=== PATIENT | male | born 1960 | race Caucasian/White ===

== ENCOUNTER → 2023-11-03 07:02 | Outpatient (REF) | payer OTHER, SELFPAY | LOC: RAD 07:02 | PROVIDERS: ATTENDING PHYSICIAN Nurse Practitioner Family | DX: R51.9 Headache, unspecified (principal) | CPT/HCPCS: 70450 ==

== ENCOUNTER 2025-06-26 07:04 | Emergency (ER) | payer OTHER, SELFPAY ==
[2025-06-26 07:11] VITALS: BP 148/90
[2025-06-26 07:15] VITALS: BMI 25.1
[2025-06-26] MEDS: ASPIRIN 325 MG PO (07:39)
--- NOTE | 2025-06-26 07:41 | ED.GENMED ---
History of Present Illness
General
Chief Complaint: Chest Pain
Source: patient
Exam Limitations: none
Time Seen by Provider: 06/26/25 07:12
Nursing documentation reviewed up to this point in time: agreed with
History of Present Illness
History of Present Illness:
65-year-old male presenting to the emergency department today with concerns of left chest pain described as a tightness with specific movements seems to improve when sitting still. Initially started in upper back. He claims that he was in [place]
last week and he was kite surfing and doing a large amount of work while there. He had some degree of symptoms at that time but seem to worsen after flying home. He denies any specific associated symptoms. Denies specifically any shortness of
breath nausea diaphoresis. Denies any recent leg swelling recent trauma surgery immobilization history of blood clots.
Past History
Past History
ED Past Medical History: Other (Remote history of Lyme's disease)
ED Past Surgical History: None
Social History
Tobacco: Non-smoker
Alcohol: Occasional
Personal:
Living: with family
Employment: Employed
Family History
Family History: Unable to obtain
Review of Systems
Review of Systems
Allergies reviewed?: Yes
All Other Systems: ROS reviewed and negative except as documented in HPI and ROS
Phy Exam
Physical Exam
Physical Exam:
GENERAL: Alert , in no apparent distress
EYE: pupils equal and reactive
NECK: Supple, no significant adenopathy.
ENT: o/p clr, mmm.
CARDIAC: Regular rate and rhythm .
LUNGS: Clear breath sounds bilaterally, no acute respiratory distress, no wheezes/rales/rhonchi
ABDOMEN: Soft, without focal tenderness, no r/g, no cvat
NEUROLOGICAL: Alert and oriented, no focal neuro deficits
SKIN: Warm and dry, skin intact.
MUSCULOSKELETAL: No edema, well perfused.
PSYCH: Normal and appropriate interaction.
Scores
Heart Score for Chest Pain Patients
STEMI patient?: No
History: Slightly or Non-Suspicious
ECG: Normal
Age: >/= 65 years
Risk Factors: No Risk Factors
Troponin: </= Normal Limit
Heart Score for Chest Pain Patients: 2
Heart Score Risk: 2.5% MACE over next 6 weeks
Course
Orders/Labs/Results
Orders:
Orders
06/26/25 07:05
EKG [Electrocardiogram (*1)] Urgent
Reason for Study: Chest Pain
EKG- Treatment ONCE
06/26/25 07:15
Electrocardiogram (*1) Urgent
Reason for Study: Chest Pain
EKG- Treatment ONCE
06/26/25 07:27
Cardiac Monitoring- Treatment ONCE
Aspirin 325 mg PO NOW STA
CR Chest - 2 Views Urgent
Comment:
Reason For Exam: L cp
06/26/25 07:37
Complete Blood Count/With Diff Urgent
Comprehensive Metabolic Panel Urgent
Magnesium Urgent
Troponin I Urgent
06/26/25 08:53
Ketorolac [Toradol] 15 mg IV NOW STA
Abnormal Lab Results
06/26/25
07:37
Absolute Neuts (auto) 7.3 H 10^3/uL
(1.4-6.5)
Absolute Lymphs (auto) 1.0 L 10^3/uL
(1.2-3.4)
Absolute Monos (auto) 0.8 H 10^3/uL
(0.1-0.6)
Neutrophils % 78.0 H %
(42.2-75.2)
Lymphocytes % 11.1 L %
(20.5-51.1)
Glucose 133 H mg/dl
(70-99)
06/26/25 07:37
06/26/25 07:37
Vital Signs
Initial and Last Documented VS:
Initial Vital Signs
Temp Pulse Resp Pulse Ox
97.8 F 74 18 96
06/26/25 07:10 06/26/25 07:10 06/26/25 07:10 06/26/25 07:10
Last Documented Vital Signs
Temp Pulse Resp BP Pulse Ox
97.8 F 66 18 136/93 94
06/26/25 07:10 06/26/25 08:45 06/26/25 08:45 06/26/25 08:14 06/26/25 08:45
MDM/Problems Addressed
MDM/Problems Addressed:
65-year-old male presenting to the emergency department today with concerns of an intermittent pain to the left chest and left upper back after trip to [place]. He claims he was very active in [place] but denies any specific known injury. On
arrival his EKG does not show signs of ischemia vital signs are normal patient in no distress. Pain seems to be specifically worse with movement of the left shoulder region no overlying skin changes. Normal heart and lung exam. Pain seems to be
reproducible specifically with movement and different positioning making mechanical pain much more likely. EKG here without acute findings troponin negative chest x-ray without acute findings. Patient vies to take medication for symptoms and
otherwise follow-up closely with cardiology return precautions given.
*Pulse Oximetry
SaO2: 97
Patient hypoxic: no (94)
*Critical Care Note
Total Time (30-74mins, 75-104mins- exclusive of procedures): Not Applicable
ED Attending Note
-
Portions of this chart may have been created with voice recognition software.� Occasional wrong word or��sound alike� substitutions may have occurred due to the inherent limitations of voice recognition software.
Discharge Plan
Departure
Patient Disposition: Home (Routine Discharge)
Date of Disposition: 06/26/25
Time of Disposition: 09:28
Patient with high blood pressure during this ER visit?: No
Condition: Good
Covid-19: Not Applicable
Discharge Problem:
Chest pain
Instructions: Chest Pain CBC Follow Up
Prescriptions:
No Action
No Current Medications
0
Referrals:
Addie Rios PA-C [Family Provider, Family Practice]
Activity Restrictions/Additional Instructions:
You came to the emergency department today with concerns of chest pain. Here your reassuring assessment. Please follow closely with cardiology. Return for any worsening, new or concerning symptoms.
Interventions
Interventions:
*General Assessment Last Done: 06/26/25 07:15
*Neglect/Abuse Screening Last Done: 06/26/25 07:24
*ED- Fall Risk Assessment Last Done: 06/26/25 07:15
*ED COVID-19 Vaccine History Last Done: 06/26/25 07:15
*ED Influenza Vaccine History Last Done: 06/26/25 07:15
ED- Cardiac Assessment Last Done: 06/26/25 07:20
Discharge Date and Time
Print Language: K[place]IL[place]
[2025-06-26 07:44] LABS: Hematocrit 44.3 % (39.0-52.0); Hemoglobin 14.6 g/dL (13.0-18.0); Mean Corp Hgb Conc. 33.0 g/dL (33.0-37.0); Mean Corpuscular Volume 90.0 fL (80.0-94.0); Nucleated Red Blood Cells % 0 % (-); Platelet Count 221 10^3/uL (130-400); Red Cell Dist. Width 11.8 % (11.5-14.5)
[2025-06-26 08:07] LABS: ALT (SGPT) 18 U/L (0-50); AST (SGOT) 19 U/L (17-59); Albumin 4.0 g/dl (3.5-5.0); Alkaline Phosphatase 71 U/L (38-126); Blood Urea Nitrogen 12 mg/dl (9-20); Calcium 9.0 mg/dl (8.4-10.2); Carbon Dioxide 28 mmol/L (22-30); Chloride 104 mmol/L (98-107); Estimated Creatinine Clearance 95 ml/min; Glucose 133 mg/dl (70-99); Magnesium 2.0 mg/dl (1.6-2.3); Potassium 4.2 mmol/L (3.5-5.1); Sodium 135 mmol/L (135-145); Total Protein 7.0 g/dl (6.3-8.2); eGFR > 60.00
[2025-06-26 08:08] LABS: Troponin I < 0.012 ng/ml
[2025-06-26 08:14] VITALS: BP 136/93
[2025-06-26] MEDS: TORADOL 15 MG IV (09:00)
== END 2025-06-26 09:44 | disposition home or self-care (01) ==
LOC: EMR 07:04
PROVIDERS: Physician Assistant; EMERGENCY PHYSICIAN Student in an Organized Health Care Education/Training Program; FAMILY PHYSICIAN Physician Assistant Medical
DX: R07.89 Other chest pain (principal); M54.6 Pain in thoracic spine
CPT/HCPCS: 99285; 96374; 71046; 80053; 83735; 84484; 85025; 93005

== ENCOUNTER 2025-06-27 08:52 | Emergency (ER) | payer OTHER, SELFPAY ==
[2025-06-27 08:53] VITALS: BP 144/89
[2025-06-27 09:25] VITALS: BMI 25.8
[2025-06-27] MEDS: FLEXERIL 5 MG PO (09:41)
[2025-06-27] MEDS: TORADOL 15 MG IV (09:41)
--- NOTE | 2025-06-27 09:42 | ED.GENMED ---
History of Present Illness
General
Chief Complaint: Musculo-Skeletal Complaint
Time Seen by Provider: 06/27/25 09:00
History of Present Illness
History of Present Illness:
Patient is a 65-year-old male with history of back pain neck pain who frequently goes to a chiropractor presenting to the emergency department with worsening back pain. 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
went to a chiropractor. He felt as if he got over her chest and has been having spasms since then. However he does note that he has some difficulty breathing especially upon taking a deep breath. No leg swelling hemoptysis or family or personal
history of blood clots. No history of cancer. He states that sometimes he was having chest tightness. He did come to the emergency department yesterday and had a full evaluation including a troponin and EKG which was unremarkable. He was given
Toradol and felt much better. However he woke up this morning with significant worsening pain. He does note that he did not have any pleuritic chest pain yesterday but does note it today states that when he takes in a deep breath it triggers his
muscle spasms. He also states that he did not take any medications after the Toradol as he scheduled for colonoscopy and thought he could not take anything.
Past History
Past History
ED Past Medical History: Other (Remote history of Lyme's disease)
ED Past Surgical History: None
Social History
Tobacco: Non-smoker
Alcohol: Occasional
Personal:
Living: with family
Employment: Employed
Family History
Family History: Unable to obtain
Phy Exam
Physical Exam
Physical Exam:
GENERAL: in no acute distress
HEENT: normocephalic, extraocular movements intact, moist oral mucosa
NECK: normal inspection
Back: Diffuse tenderness to the upper and lower back
RESPIRATORY: no respiratory distress, clear to auscultation bilaterally
CARDIOVASCULAR: regular rate and rhythm
ABDOMEN/: soft, non-distended, non-tender to palpation, no rebound or guarding
EXTREMITIES: non-tender, no edema/swelling
NEUROLOGIC: awake and alert, moves all extremities
SKIN: warm
Course
Orders/Labs/Results
Orders:
Orders
06/27/25 09:20
Electrocardiogram (*1) Urgent
Reason for Study: Chest Pain
EKG- Treatment ONCE
Cyclobenzaprine HCl [Flexeril] 5 mg PO NOW STA
Ketorolac [Toradol] 15 mg IV NOW STA
CR Chest - 2 Views Urgent
Comment:
Reason For Exam: sob
06/27/25 09:43
Basic Metabolic Panel Urgent
Complete Blood Count/With Diff Urgent
D-Dimer Urgent
Abnormal Lab Results
06/27/25
09:43
Absolute Neuts (auto) 7.1 H 10^3/uL
(1.4-6.5)
Absolute Lymphs (auto) 1.1 L 10^3/uL
(1.2-3.4)
Absolute Monos (auto) 0.9 H 10^3/uL
(0.1-0.6)
Neutrophils % 77.4 H %
(42.2-75.2)
Lymphocytes % 11.5 L %
(20.5-51.1)
Monocytes % 10.2 H %
(1.7-9.3)
D-Dimer 0.55 H ug/mlFEU
(0.00-0.50)
Glucose 106 H mg/dl
(70-99)
06/27/25 09:43
06/27/25 09:43
Vital Signs
Initial and Last Documented VS:
Initial Vital Signs
Temp Pulse Resp BP Pulse Ox
98.3 F 77 16 144/89 98
06/27/25 08:53 06/27/25 08:53 06/27/25 08:53 06/27/25 08:53 06/27/25 08:53
Last Documented Vital Signs
Temp Pulse Resp BP Pulse Ox
98.3 F 77 16 127/84 95
06/27/25 08:53 06/27/25 08:53 06/27/25 08:53 06/27/25 10:37 06/27/25 10:37
MDM/Problems Addressed
Differential Diagnosis Includes:
Patient is a 65-year-old man with history of back and neck pain who sees chiropractor presenting to the emergency department with worsening back spasms as well as pleuritic chest pain. On arrival vitals unremarkable and exam does show reproducible
muscle tenderness diffusely to the entire back. Likely musculoskeletal. However given patient's age pleuritic nature recent plane ride I did discuss PE. He is a low risk as the pain is reproducible. After shared decision making we will proceed
with a dimer. He did have a cardiac workup otherwise completed yesterday. Will pain control with Toradol as well as Flexeril
*Pulse Oximetry
SaO2: 98
Oxygen Mode of Delivery: Room air
Patient hypoxic: no
*Critical Care Note
Total Time (30-74mins, 75-104mins- exclusive of procedures): Not Applicable
Update Note
Update Note:
On reevaluation patient appears much more comfortable. He is now able to lay in the stretcher. Blood work is unremarkable. Age-adjusted dimer is negative. EKG per my interpretation without any ST changes. Will discharge patient at this time.
Will give short prescription of Flexeril.
ED Attending Note
-
Portions of this chart may have been created with voice recognition software.� Occasional wrong word or��sound alike� substitutions may have occurred due to the inherent limitations of voice recognition software.
Discharge Plan
Departure
Patient Disposition: Home (Routine Discharge)
Date of Disposition: 06/27/25
Time of Disposition: 10:49
Patient with high blood pressure during this ER visit?: Yes
Discharge Problem:
Muscle spasm
Instructions: Muscle Strain (DC)
Prescriptions:
New
cyclobenzaprine 5 mg tablet
5 mg PO TID Qty: 14 0RF
Referrals:
Addie Rios PA-C [Family Provider, Family Practice]
Activity Restrictions/Additional Instructions:
Thank You for choosing [facility].
It was a pleasure meeting you and taking part in your care. We hope for your continued healing and wellness.
You were seen in the Emergency Department today for muscle spasms. While you were here we performed blood work, which was reassuring. Please use ibuprofen as well as Flexeril as needed. Flexeril can cause drowsiness. Do not drive or make important
decisions while taking it.
We would like for you to follow up with your primary care physician for further evaluation. If you experience fever, worsening of your symptoms, or develop any other new or concerning symptoms, please return to the Emergency Department immediately.
Please see the attached sheet for additional information.
We discussed pain medications:
You may also take Ibuprofen (also known as Motrin or Advil). If taking with Tylenol, alternate and take between dosing.
You may take 400-800mg of Ibuprofen per dose, which should be taken every 6-8 hours.
Do not take more than 3200mg (3.2 grams) of Ibuprofen per day.
Interventions
Interventions:
*Risk Screen - Suicide Last Done: 06/27/25 08:53
*General Assessment Last Done: 06/27/25 08:53
*Neglect/Abuse Screening Last Done: 06/27/25 08:53
*ED- Fall Risk Assessment Last Done: 06/27/25 09:27
*ED COVID-19 Vaccine History Last Done: 06/27/25 09:27
*ED Influenza Vaccine History Last Done: 06/27/25 09:27
ED-Musculoskeletal Assessment Last Done: 06/27/25 09:26
Discharge Date and Time
Print Language: AUSTRIAN
[2025-06-27 09:57] LABS: Hematocrit 42.3 % (39.0-52.0); Hemoglobin 14.3 g/dL (13.0-18.0); Mean Corp Hgb Conc. 33.8 g/dL (33.0-37.0); Mean Corpuscular Volume 88.7 fL (80.0-94.0); Nucleated Red Blood Cells % 0 % (-); Platelet Count 224 10^3/uL (130-400); Red Cell Dist. Width 11.7 % (11.5-14.5)
[2025-06-27 10:10] LABS: D-Dimer 0.55 ug/mlFEU (0.00-0.50)
[2025-06-27 10:13] LABS: Blood Urea Nitrogen 14 mg/dl (9-20); Calcium 9.1 mg/dl (8.4-10.2); Carbon Dioxide 29 mmol/L (22-30); Chloride 101 mmol/L (98-107); Estimated Creatinine Clearance 85 ml/min; Glucose 106 mg/dl (70-99); Potassium 4.3 mmol/L (3.5-5.1); Sodium 137 mmol/L (135-145); eGFR > 60.00
[2025-06-27 10:37] VITALS: BP 127/84
== END 2025-06-27 11:02 | disposition home or self-care (01) ==
LOC: EMR 08:52
PROVIDERS: EMERGENCY PHYSICIAN Student in an Organized Health Care Education/Training Program; FAMILY PHYSICIAN Physician Assistant Medical
DX: M62.838 Other muscle spasm (principal); R07.81 Pleurodynia; M54.2 Cervicalgia
CPT/HCPCS: 96374; 99285; 71046; 80048; 85025; 85379; 93005

== ENCOUNTER → 2025-07-04 14:46 | Outpatient (REF) | payer SELFPAY | LOC: HWRAD 14:46 | PROVIDERS: ATTENDING PHYSICIAN Student in an Organized Health Care Education/Training Program; FAMILY PHYSICIAN Physician Assistant Medical | DX: R07.9 Chest pain, unspecified (principal) | CPT/HCPCS: 75571 ==

== ENCOUNTER → 2025-07-09 11:35 | Outpatient (REF) | payer OTHER, SELFPAY | LOC: HWRCS 11:35 | PROVIDERS: ATTENDING PHYSICIAN Student in an Organized Health Care Education/Training Program; FAMILY PHYSICIAN Physician Assistant Medical | DX: R07.9 Chest pain, unspecified (principal) | CPT/HCPCS: 78452; 93017; A9500 ==